=== PATIENT | female | born 1950 | race Caucasian/White ===

== ENCOUNTER 2016-08-26 18:05 | Emergency (ER) | payer MEDICARE ==
--- NOTE | ~2016-08-26 | CR71 ---
[facility] A Service of [facility] RADIOLOGY TEXT RESULTS PATIENT: JASWINDER CAUSEY LOCATION: [facility] : 48 UNIT #: [id number] AGE: [address]: Rosa Maria Celeste MD SEX: F ORDER DR: [id number] [facility] [address] [place], [place] [address] [id number] E MR#: [id number] Acc #: [id number] NAME: JASWINDER CAUSEY : 1950 SEX: F STUDY DATE/TIME: 08/26/2016 17:16 UNIT: [facility] ROOM: STUDY DESCRIPTION: CR Chest Single View Attending Physician: Rosa Maria Celeste M.D. Ordering Physician: Ramon Aceves M.D. Primary Care Physician: Jody Mills M.D. MEDICAL IMAGING REPORT This report is preliminary unless electronic signature is present EXAM Single view chest 08/26 HISTORY Chest pain, dizziness, shortness of air, difficulty breathing for the last 5 days after a fall. FINDINGS AP portable view of the chest obtained. No comparison. There is dextroscoliosis in the spine with diffuse degenerative disease noted. Heart size is normal. There is some atelectasis in the basis. The lungs are otherwise clear, except for granulomatous calcifications. No pneumothorax. IMPRESSION Mild bibasilar atelectasis, otherwise no active disease. Dictated by... João Montana Jr., M.D. THIS IS AN ELECTRONICALLY VERIFIED REPORT João Montana Jr., M.D. at 08/26/2016 10:25 PM TOMASA/[email or web address] TD: 08/26/2016 20:46 JOB #: [id number] MEDICAL IMAGING REPORT Page 1 of 1 COPY
[2016-08-26 17:29] LABS: BASOPHIL# 0.1 X10e3 (0-0.3); BASOPHIL% 0.7 % (0-2.5); EOSINOPHIL% 0.3 % (0.0-7.0); HEMOGLOBIN 14.4 gm/dL (12.0-16.0); LYMPHOCYTE# 1.2 X10e3 (1.0-3.5); LYMPHOCYTE% 11.4 % (17.0-45.0); MEAN CELL VOLUME 93.6 FL (83-96); MEAN CORPUSCULAR HEMOGLOBIN 30.7 PG (28-34); MEAN CORPUSCULAR HGB CONC 32.8 g/dL (30-36); MONOCYTE# 0.7 X10e3 (0-1.0); MONOCYTE% 6.4 % (3.0-12.0); NEUTROPHIL# 8.4 X10e3 (1.5-7.1); NEUTROPHIL% 81.2 % (40-75); PLATELET COUNT 195 X10e3 (140-420); RED CELL DISTRIBUTION WIDTH 12.7 % (11.0-15.5); WHITE BLOOD COUNT 10.4 X10e3 (4.0-10.5)
[2016-08-26 17:30] LABS: DIFF IND NO
[2016-08-26 17:43] LABS: ALBUMIN SERUM 4.3 g/dL (3.5-5.0); BILIRUBIN, DIRECT 0.1 mg/dL (0.0-0.2); BILIRUBIN,INDIRECT 0.5 mg/dL (0.0-0.9); BILIRUBIN,TOTAL 0.6 mg/dL (0.2-2.0); BUN/CREATININE RATIO 12.22; CALCIUM SERUM 9.2 mg/dL (8.4-10.2); CREATININE SERUM 0.9 mg/dL (0.6-1.4); GLOM FILT RATE Estimated 66.7 mL/min (>60); PROTEIN TOTAL SERUM 7.3 g/dL (6.0-8.3)
[~2016-08-26 18:05] MED LIST: ACETAMINOPHEN PO; EFFEXOR
== END 2016-08-26 20:10 | disposition home or self-care (01) ==
LOC: CED 18:05
PROVIDERS: Emergency Medicine
DX: S20.212A Contusion of left front wall of thorax, initial encounter (principal); F41.9 Anxiety disorder, unspecified; F17.210 Nicotine dependence, cigarettes, uncomplicated; W19.XXXA Unspecified fall, initial encounter
CPT/HCPCS: 36415; 71010; 80048; 80076; 85025; 94010; 96374; 96375; 99284; J1170; J2405